=== PATIENT | female | born 1985 | race Two or more races ===

== ENCOUNTER 2024-11-18 19:23 | Emergency (ER) | payer OTHER ==
[~2024-11-18] VITALS: Ht 157.5 cm; Wt 68.0 kg
[2024-11-18 21:23] LABS: BASO % 0.4 % (0.1-1.2); EOS # 0.18 (0.04-0.54); EOS % 2.0 % (0.7-7.0); LYMPH # 2.74 (1.18-3.74); LYMPH % 30.4 % (19.3-53.1); MEAN PLATELET VOLUME 11.30 fl (9.4-12.4); MONO # 0.67 (0.24-0.82); MONO % 7.4 % (4.7-12.5); NEUT # 5.34 (1.56-6.13); NEUT % 59.5 % (34.0-71.1); RED CELL DISTRIBUTION WIDTH 16.9 % (11.6-14.4)
[2024-11-18 21:38] LABS: URINE APPEARANCE Clear; URINE BILIRRUBIN Negative (NEGATIVE); URINE BLOOD Negative; URINE COLOR Yellow; URINE GLUCOSE Negative (NEGATIVE); URINE KETONE Negative (NEGATIVE); URINE LEUKOCYTE Negative; URINE NITRATE Negative; URINE PROTEIN Negative (NEGATIVE); URINE UROBILINOGEN 0.2 E.U./dl
[2024-11-18 21:42] LABS: URINE BACTERIA 107.9 uL (0.0-1933); URINE EPITHELIAL CELLS 2.3 uL (0.0-38.8); URINE RBC 4.5 uL (0.0-20.8); URINE WBC 2.4 uL (0.0-23.2)
[2024-11-18 21:47] LABS: URINE CAST 0.14 uL (0.0-1.40)
[2024-11-18 22:33] LABS: ALT/SGPT 18.0 U/L (12-78); AST/SGOT 9.0 U/L (15-37); BILIRUBIN TOTAL 0.19 mg/dL (0.3-1.2); BUN CREA RATIO 12.0 (7.0-25.0); CREATININE SERUM 0.77 mg/dL (0.55-1.02); GFR 83.03; GLOBULINA 4.0 G/DL (2.4-3.5); GLUCOSE FASTING 94.0 mg/dL (65-100); OSMOLALITY SERUM 282.0 MOSM/KG (275-295)
[2024-11-19] MEDS ORDERED: LEVSIN/SL0.125 MG SL (01:07)
[2024-11-19] MEDS ORDERED: INTESTINEX680 M2 PO (01:07)
[2024-11-19] MEDS ORDERED: CIPRO500 MG PO (01:07)
== END 2024-11-19 01:20 ==
LOC: ER 19:23
PROVIDERS: Emergency Medicine
DX: K62.5 Hemorrhage of anus and rectum (principal); K64.8 Other hemorrhoids; Z91.018 Allergy to other foods; R19.7 Diarrhea, unspecified; D25.9 Leiomyoma of uterus, unspecified; N83.292 Other ovarian cyst, left side